=== PATIENT | female | born 1965 | race Caucasian/White ===

== ENCOUNTER 2016-09-10 17:55 | Emergency (ER) | payer BC ==
[2016-09-10] MEDS ORDERED: oxyCODONE/Acetamin 5/325 MG* TAB PO ONE ×2 (18:04→22:00)
[2016-09-10] MEDS ORDERED: oxyCODONE/Acetamin 5/325 MG* TAB ONE (18:05)
--- NOTE | 2016-09-10 20:57 | RAD ---
HISTORY: Trauma to back COMPARISONS: None VIEWS: 3, frontal, outlet, and lateral views of the sacrum and coccyx FINDINGS: BONE DENSITY: Normal. BONES: There is no displaced fracture. The sacral arches are intact JOINTS: There is osteoarthritis of the facet joints. ALIGNMENT: There is no dislocation. SOFT TISSUES: Unremarkable. OTHER FINDINGS: None. IMPRESSION: NO ACUTE OSSEOUS INJURY OF THE SACRUM AND COCCYX. PLAIN FILMS ARE RELATIVELY INSENSITIVE TO NONDISPLACED FRACTURES OF THE SACRUM AND COCCYX. IF THERE IS PERSISTENT CLINICAL CONCERN FOR SACROCOCCYGEAL OSSEOUS PATHOLOGY, BONE SCANNING AND/OR MRI OF THE AREA OF CONCERN MAY BE MORE SENSITIVE
[2016-09-10 22:09] VITALS: BP 153/87
--- NOTE | 2016-09-10 23:19 | ED ---
Valerie Cano Anna, scribed for Lefty Yusuf MD on 09/10/16 at 1915 . Adult Trauma - HPI Summary HPI Summary: Patient is a 51 y/o female coming to [facility] after a fall that occurred at 1530 this afternoon when she slipped on an oiled bowling qian and fell onto her back. She was ambulatory at the scene and denies LOC. She reports right-sided lower back pain and swelling. She iced the injured area and took two Aleve at 1630, which did not alleviate the pain. Per triage notes, the patient describes the severity of their symptoms as 10/10. She reports some nausea following the Percocet, which has since alleviated. - History of Current Complaint Chief Complaint: EDBackInjuryPain Stated Complaint: FALL LOWR BACK PAIN Time Seen by Provider: 09/10/16 19:08 Hx Obtained From: Patient, Family/Litigation Counsel - Accompanied by daughter and Mechanism of Injury: Fall Ambulatory at the Scene: Yes Loss of Consciousness: no loss of consciousness Pain Intensity: 10 Pain Scale Used: 0-10 Numeric - Allergy/Home Medications Allergies/Adverse Reactions: Allergies Allergy/AdvReac Type Severity Reaction Status Date / Time Epinephrine Allergy heart races Verified 09/10/16 18:02 Penicillins [PCN] Allergy Rash Verified 09/10/16 18:02 PMH/Surg Hx/FS Hx/Imm Hx Previously Healthy: Yes Endocrine/Hematology History: Reports: Other Endocrine/Hematological Disorders - Psoriasis Cardiovascular History: Reports: Hx Hypertension Infectious Disease History: No Infectious Disease History: Denies: Traveled Outside the [place] in Last 30 Days - Family History Known Family History: Positive: Hypertension - Hx in father Negative: Cardiac Disease - Social History Occupation: Employed Full-time Lives: With Family Alcohol Use: Rare Hx Substance Use: No Substance Use Type: Reports: None Hx Tobacco Use: No Smoking Status (MU): Never Smoked Tobacco Review of Systems Positive: Arthralgia Negative: Syncope All Other Systems Reviewed And Are Negative: Yes Physical Exam Triage Information Reviewed: Yes Vital Signs On Initial Exam: Initial Vitals Temp Pulse Resp BP Pulse Ox 98.1 F 102 18 121/88 97 09/10/16 17:58 09/10/16 17:58 09/10/16 17:58 09/10/16 17:58 09/10/16 17:58 Vital Signs Reviewed: Yes Appearance: Positive: Well-Appearing, No Pain Distress Skin: Positive: Warm, Skin Color Reflects Adequate Perfusion, Dry Head/Face: Positive: Normal Head/Face Inspection Eyes: Positive: Normal ENT: Positive: Normal ENT inspection Neck: Positive: Supple, Nontender Respiratory/Lung Sounds: Positive: Clear to Auscultation, Breath Sounds Present Cardiovascular: Positive: RRR Abdomen Description: Positive: Nontender, Soft Bowel Sounds: Positive: Present Musculoskeletal: Positive: Other - Edema and tenderness over post-sacral spine on midline Neurological: Positive: Normal Psychiatric: Positive: Affect/Mood Appropriate Diagnostics - Vital Signs Vital Signs Temp Pulse Resp BP Pulse Ox 09/10/16 18:51 99.2 F 103 18 145/97 97 09/10/16 17:58 98.1 F 102 18 121/88 97 - Laboratory Lab Statement: Any lab studies that have been ordered have been reviewed, and results considered in the medical decision making process. - Radiology Sacrum and Coccyx XR Xray Interpretation: No Acute Changes Radiology Interpretation Completed By: Radiologist - IMPRESSION: NO ACUTE OSSEOUS INJURY OF THE SACRUM AND COCCYX. PLAIN FILMS ARE RELATIVELY INSENSITIVE TO NONDISPLACED FRACTURES OF THE SACRUM AND COCCYX. IF THERE IS PERSISTENT CLINICAL CONCERN FOR SACROCOCCYGEAL OSSEOUS PATHOLOGY, BONE SCANNING AND/OR MRI OF THE AREA OF CONCERN MAY BE MORE SENSITIVE Adult Trauma Course/Dx - Course Assessment/Plan: Patient is a 51 y/o female coming to [facility] after a fall that occurred at 1530 this afternoon when she slipped on an oiled bowling qian and fell onto her back. She was ambulatory at the scene and denies LOC. She reports right-sided lower back pain and swelling. She iced the injured area and took two Aleve at 1630, which did not alleviate the pain. Per triage notes, the patient describes the severity of their symptoms as 10/10. She reports some nausea following the Percocet, which has since alleviated. Sacrum and coccyx XR reveal no acute osseous injury. Patient will be discharged home with follow up from PCP. - Diagnoses Provider Diagnoses: Contusion of sacrum Discharge - Discharge Plan Condition: Guarded Disposition: HOME Prescriptions: oxyCODONE/Acetamin 5/325 MG* [Percocet 5/325 TAB*] 1 tab PO Q6H PRN #20 tab MDD 4 PRN Reason: Pain Patient Education Materials: Coccyx Injury (ED) Additional Instructions: Follow up with primary care physician within 48 hours. Return to the emergency department for changing or worsening symptoms. The documentation as recorded by the Valerie pina Anna accurately reflects the service I personally performed and the decisions made by me, Lefty Yusuf MD.
== END 2016-09-10 22:09 | disposition home or self-care (01) ==
LOC: ED 17:55
DX: S30.0XXA Contusion of lower back and pelvis, initial encounter (principal); I10 Essential (primary) hypertension; Z88.0 Allergy status to penicillin; W01.0XXA Fall on same level from slipping, tripping and stumbling without subsequent striking against object, initial encounter; Y92.39 Other specified sports and athletic area as the place of occurrence of the external cause
CPT/HCPCS: 72220; 99283; A9270-GY